=== PATIENT | female | born 1950 | race Caucasian/White ===

== ENCOUNTER 2017-04-09 05:52 | Observation (INO) | payer MEDICARE, MEDICAID ==
--- NOTE | 2017-04-09 06:35 | ERNOTE ---
Medical Problem HPI - Narrative Date of Service: 04/09/17 - General Chief Complaint: General Assessment Time Seen by Provider: 04/09/17 06:31 Source: patient Exam Limitations: clinical condition - PT IS ALERT BUT SPEECH IS LARGELY UNINTELLIGIBLE. - Immun/Allergies/Home Medications Immunizations: IMMUNIZATION HX Immunizations Up to Date Yes Allergies/Adverse Reactions: Allergies ciprofloxacin [From Cipro] Allergy (Verified 08/27/16 12:34) ciprofloxacin HCl [From Cipro] Allergy (Verified 08/27/16 12:34) diphenhydramine Allergy (Verified 08/27/16 12:34) influenza virus vaccine, specific Allergy (Verified 08/27/16 12:34) paroxetine Allergy (Verified 08/27/16 12:34) pneumococcal vaccine Allergy (Verified 08/27/16 12:34) Home Medications: HOME MEDICATIONS Acetaminophen [Tylenol] 500 mg PO Q6H PRN 08/27/16 [Last Taken Unknown] Citalopram Hydrobromide [Citalopram HBr] 20 mg PO DAILY 08/27/16 [Last Taken Unknown] Magnesium Hydroxide [Milk Of Magnesia] 30 ml PO DAILY PRN 08/27/16 [Last Taken Unknown] OLANZapine [Zyprexa] 20 mg PO HS 08/27/16 [Last Taken Unknown] Polyethylene Glycol 3350 [Purelax] 17 gm PO DAILY 08/27/16 [Last Taken Unknown] Ranitidine HCl [Zantac] 300 mg PO HS 08/27/16 [Last Taken Unknown] Sennosides/Docusate Sodium [Senokot-S] 2 tab PO BID 08/27/16 [Last Taken Unknown ] Simvastatin [Zocor] 40 mg PO HS 08/27/16 [Last Taken Unknown] risperiDONE [Risperidone] 0.5 mg PO HS 08/27/16 [Last Taken Unknown] Loratadine [Claritin] 10 mg PO DAILY 04/09/17 [Last Taken Unknown] Lorazepam [Ativan] 2 mg PO TID 04/09/17 [Last Taken Unknown] QUEtiapine FUMARATE [Seroquel] 100 mg PO BID 04/09/17 [Last Taken Unknown] - History of Present History Narrative: [facility] HAVE ONE EPISODE OF HEMOPTYSIS WHILE [facility] THIS AM. THEY SNET IN A SAMPLE THAT THEY DID A HEMOCULT CARD ON BUT SAMPLE LOOKS MORE LIKE COFFEE GROUND EMESIS. PT DOES INDICATE SHE IS A LITTLE NAUSEOUS THOUGH I AM NOT SURE HOW RELIABLE HER HX IS. . SHE HAS HAD NO COUGHING OR VOMITING SINCE SHE ARRIVED. SHE IS NOT ABLE TO GIVE ANY MORE SPECIFIC INFO AND SKILLED NURSING HAS NO OTHER HX TO GIVE. Timing: resolved prior to arrival Review of Systems - Review of Systems Constitutional: Present: See HPI - I AM NOT SUREE THERE IS GOOD RELIABILTY OF HISTORY FROM THE PT. SHE HAS DX OF DEMENTIA IN ADDITION TO THE DIFFICULTY UNDERSTANDING HER. - Patient's Past Medical History Patient History - Medical: Anxiety, Dementia, Depression, Other Patient History - Cardiac/Respiratory: Hyperlipidemia Patient History - Cancer: No Hx of Cancer Patient History - Surgical Procedures: No surgical history - Social History Living Situations: [facility] Psych History: Hx of Depression, Current tx/ever been on anti-depressants or anti-anxiety meds Smoking Status: Former smoker Alcohol Use: none Drug Use: none - Immunizations Immunizations Up to Date: Yes Physical Exam - Physical Exam General Appearance: Present: alert, no apparent distress, other - WEAK DYSARTHIC LADY WHO IS ALERT AND COOP WITH VSS , THOUGH SECOND BP IS ONLY 95. Eye Exam: Normal inspection: bilateral Ears, Nose, Throat: Present: normal ENT inspection, other - NO SIGN OF NOSE BLEED , BLOOD IN MOUTH OR ANY EVIDENCE OF HEMETEMESIS EITHER. Respiratory: Present: no respiratory distress, normal breath sounds, chest nontender, lungs clear Cardiovascular/Chest: Present: regular rate, rhythm, no murmur Gastrointestinal/Abdominal: Present: normal bowel sounds, nontender, nondistended, soft, no organomegaly Rectal Exam: Present: nontender, normal rectal tone, other - SMALL AMOUNT OF BROWNISH STOOL WITH SAMPLE SENT FOR HEME OCCULT. Neurological Exam: Present: other - LADY WITH CHRONIC GENERALIZED WEAKNESS BUT ALERT. NO CERTAIN HOW ORIENT THOUGH HER SPEECH IS ONLY OCC UNDERSTANDABLE. . Skin Exam: Present: normal color ED Progress - Results and Orders Patient's Lab Results:: I have reviewed the patient's lab results. Results and Orders: CBC AND PT/INR ARE NORMAL. CHEMISTRIES AND HEME OCLUT ARE NEGATIVE. THEY FINALLY REPORTED GASTROCULT WITH IS POSITIVE. - Vital Signs Patient's Vital Signs:: I have reviewed the patient's vital signs. Vital Signs: Vital Signs 04/09/17 05:59 Temperature 36.8 C Pulse Rate 71 Respiratory 18 Rate Blood Pressure 136/94 O2 Sat by Pulse 97 Oximetry - X-Ray X-Ray #1 X-Ray: chest Interpretation: Interp. by me - WNL - Progress/Reassessment Chief Complaint: General Assessment Progress:: Unchanged Progress Note-Subjective: 04/09/17 08:14 PT WITH NO EMESIS HERE AND NO SIGN OF ANY OTHER ACUTE PROBLEM. Plan - Plan Plan: WHEN RESULTS OF GASTROCULT FINALLY RETURNED POSITIVE I ORDERED A TYPE AND SCREEN AND CALLED DR López TO HAVE HER ADMITTED TO WHICH HE AGREED. PT HAS BEE STABLE SINCE SHE ARRIVED. MOST RECENT BP = 127/72 WITH HR = 71. I EXPLAINED THE RESULTS TO THE PT AND THE NEED FOR ADMIT AND SHE SEEMS TO UNDERSTAND. Departure - Departure Clinical Impression: UGI bleed Disposition: [facility] Referrals: Chava Serrano MD [Primary Care Provider] -
[2017-04-09 06:49] LABS: Hematocrit 39.9 % (37.0-47.0); Mean Cell Volume 92.8 fl (78-100); Mean Corpuscular Hemoglobin 30.2 pg (27-31); Mean Corpuscular Hgb Conc 32.6 g/dl (32-36); Mean Platelet Volume 11.7 fl (6.0-9.5); Neutrophil # 4.8 K/mm3 (1.3-6.0); Platelet Count 156 K/mm3 (150-450); Red Cell Distribution Width 12.7 % (11.5-14.0); White Blood Count 6.5 K/mm3 (4.0-10.5)
[2017-04-09] MEDS ORDERED: ONDANSETRON HCL/PF 2 MG/ML VIAL IV ONE (06:51)
[2017-04-09] MEDS ORDERED: FAMOTIDINE 10 MG/ML VIAL IV ONE ×2 (06:53→07:11)
[2017-04-09 06:59] LABS: INR 0.97 INR (0.90-1.10); Prothrombin Time (Patient) 10.1 Seconds (9.4-11.4)
[2017-04-09 07:03] LABS: Albumin * 3.4 gm/dl (3.4-5.0); Anion Gap 9.7 mmol/L (6.8-13.8); BUN/Creatinine Ratio 19.1 (9.0-21.6); Bilirubin, Total 0.5 mg/dL (0.0-1.1); CRP 0.2 mg/dL (0.0-0.9); Calcium * 8.8 mg/dL (7.9-10.9); Carbon Dioxide 30.8 mmol/L (24-32.6); Potassium 4.5 mmol/L (3.4-4.6)
--- OUTSIDE RECORDS SUMMARY | 2017-04-09 07:03 | XMS REPORT | Continuity of Care Document ---
:1950 Author Organization [facility] ([facility]) Address [address] [place] [address] Phone [phone] Care Team Providers Name Role Phone Arnulfo Warren Primary Care Provider [phone] Source Comments This disclosure is being made pursuant to the Care Everywhere program, applicable federal and state laws, and may not contain all informaitonavailable regarding this patient.[facility] ([facility]) Active Allergies and Adverse Reactions Allergen Noted Date Severity Reactions Comments Ciprofloxacin Urticaria (Hives) Diphenhydramine (Bulk) Urticaria (Hives) Influenza Virus Vaccines 03/17/2011 Nausea & Vomiting,Diarrhea Paroxetine Urticaria (Hives) Current Medications Prescription Sig. Disp. Refills Start Date End Date Status OLANZapine (ZYPREXA) 20 Take 20 mg by mouth Active mg tablet at bedtime. citalopram (CELEXA) 40 Take 60 mg by mouth Active mg tablet daily. hydrOXYzine pamoate Take 25 mg by mouth 4 04/01/2010 Active (VISTARIL) 25 mg times daily. capsule simvastatin (ZOCOR) 40 Take 40 mg by mouth Active mg tablet every evening. Urea 40 % Lotn by Apply externally Active route at bedtime. clonazePAM (KLONOPIN) Take 0.5 mg by mouth 04/01/2010 Active 0.5 mg tablet 2 times daily as needed. acetaminophen (TYLENOL Take 1,000 mg by Active EXTRA STRENGTH) 500 mg mouth every 6 hours tablet as needed. magnesium hydroxide Take 30 mL by mouth Active (MILK OF MAGNESIA) 80 daily as needed. mg/mL suspension bisacodyl 10 mg insert 10 mg rectally Active suppository daily as needed. citalopram 20 mg tablet Take 20 mg by mouth Active daily. Total dose 60 mg daily halobetasol 0.05 % apply 1 application Active topical cream topically daily. risperiDONE 0.5 mg Take 0.5 mg by mouth Active tablet daily. SENNOSIDES/DOCUSATE Take 1 Tab by mouth Active SODIUM (SENNA PLUS PO) daily. simvastatin 40 mg Take 40 mg by mouth Active tablet every evening. polyethylene glycol Take 17 g by mouth Active 3350 17 gram packet daily as needed. 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 2012 Overview: Related to [place]'s Disease [place]'s disease 04/26/2012 Other screening mammogram 03/28/2006 Screening for unspecified condition 03/28/2006 Social History Tobacco Use Types Packs/Day Years Used Date Never Assessed Smokeless Tobacco: Never Used Last Filed Vital Signs Vital Sign Reading Time Taken Blood Pressure 112/60 09/12/2013 3:04 PM GOAL UMPIRE Pulse 70 09/12/2013 3:02 PM GOAL UMPIRE Temperature 36.3 C (97.34 F) 03/28/2006 3:49 PM CDT Respiratory Rate 16 03/28/2006 3:49 PM CDT Height 1.727 m (5' 8") 03/17/2011 1:14 PM CDT Weight 80.151 kg (176 lb 11.2 oz) 09/12/2013 3:02 PM GOAL UMPIRE Body Mass Index 26.87 09/12/2013 3:02 PM GOAL UMPIRE Oxygen Saturation 98% 09/12/2013 3:02 PM GOAL UMPIRE Plan of Care Health Maintenance Due Date Last Done Comments HCV Screening 1950 Hepatitis B Vaccine (1 of 3 - Primary 1950 Series) Tdap Vaccine 1962 Lipid Disorder Screening 1969 Td Vaccine 1969 Mammogram 1991 Colonoscopy 05/16/2001 Cervical Cancer Screening 03/28/2009 03/28/2006, 05/29/2005 Zoster Vaccine 2011 Osteoporosis Screening (DXA Bone Density) 2016 Pneumococcal Vaccine (1 of 2 - PCV13) 2016 Results from Last 3 Months Not on file
[2017-04-09] MEDS ORDERED: ONDANSETRON HCL/PF 2 MG/ML VIAL ONE (07:11)
[2017-04-09] MEDS: NORMAL SALINE 1,000 ML IV PRN ×2 (07:36→16:09)
[2017-04-09] MEDS ORDERED: NORMAL SALINE 1,000 ML IV PRN (08:08)
[2017-04-09 08:28] LABS: Hematocrit 41.7 % (37.0-47.0); Hemoglobin 13.4 gm/dL (12.5-16.0)
--- OUTSIDE RECORDS SUMMARY | 2017-04-09 08:29 | XMS REPORT | Continuity of Care Document ---
:1950 Author Organization [facility] ([facility]) Address [address] [place] [address] Phone [phone] Care Team Providers Name Role Phone Arnulfo Warren Primary Care Provider [phone] Source Comments This disclosure is being made pursuant to the Care Everywhere program, applicable federal and state laws, and may not contain all informaitonavailable regarding this patient.[facility] ([facility]) Active Allergies and Adverse Reactions [...] with behavioral disturbance 2012 Overview: Related to [place]'s Disease [place]'s disease 04/26/2012 Other screening mammogram 03/28/2006 Screening for unspecified condition 03/28/2006 Social History Tobacco Use Types Packs/Day Years Used Date Never Assessed Smokeless Tobacco: Never Used Last Filed Vital Signs Vital Sign Reading Time Taken Blood Pressure 112/60 09/12/2013 3:04 PM DIGITAL STRATEGIST SENIOR MANAGER Pulse 70 09/12/2013 3:02 PM DIGITAL STRATEGIST SENIOR MANAGER Temperature 36.3 C (97.34 F) 03/28/2006 3:49 PM CDT Respiratory Rate 16 03/28/2006 3:49 PM CDT Height 1.727 m (5' 8") 03/17/2011 1:14 PM CDT Weight 80.151 kg (176 lb 11.2 oz) 09/12/2013 3:02 PM DIGITAL STRATEGIST SENIOR MANAGER Body Mass Index 26.87 09/12/2013 3:02 PM DIGITAL STRATEGIST SENIOR MANAGER Oxygen Saturation 98% 09/12/2013 3:02 PM DIGITAL STRATEGIST SENIOR MANAGER Plan of Care Health Maintenance Due Date [...]
[2017-04-09] MEDS ORDERED: ACETAMINOPHEN 500 MG TABLET PO PRN (09:51)
[2017-04-09] MEDS ORDERED: MAGNESIUM HYDROXIDE 30 ML UDC PO PRN (09:51)
[2017-04-09] MEDS: PANTOPRAZOLE SODIUM 40 MG in NORMAL SALINE 100 ML IV SCH ×2 (11:09→22:28)
[2017-04-09] MEDS: LORazepam 1 MG TABLET PO SCH ×2 (13:01→17:09)
[2017-04-09 14:26] LABS: Hematocrit 36.3 % (37.0-47.0)
--- NOTE | 2017-04-09 17:42 | HP ---
Chief Complaint - Chief Complaint Date of Service: 04/09/17 Time of Service: 17:35 Chief Complaint: Vomiting Blood History of Present Illness: REPORTED BY THE [facility] TO HAVE ONE EPISODE OF HEMOPTYSIS WHILE SHOWERING AT THIS AM. THEY SENT A SAMPLE WITH HER TO THE ER, WHICH THE ER DOCTOR DESCRIBED COFFEE GROND. DEDRESCRIBED COFFEE GROUND. WAS POSITIVE FOR BLOOD WHEN TEST FOR BLOOD. NO MORE VOMITING OF BLOOD SINCE ARRIVING AT [facility]. BLEEDING SCAN NEGATIVE. 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 HER HGB HAS NOT DROPPED HOWEVER SINCE LAST CHECKED BUT WE WILL CONTINUE TO MONITOR FOR SIGNIFICANT ONGOIN BLEEDING. ESTIMATE STAY OF TWO DAYS. - Patient's Past Medical History Patient History - Medical: Anxiety, Dementia, Depression, Other - [place]'s chorea Patient History - Cardiac/Respiratory: Hyperlipidemia Patient History - Cancer: No Hx of Cancer Patient History - Surgical Procedures: No surgical history - Social History Living Situations: intermediate Psych History: Hx of Depression, Current tx/ever been on anti-depressants or anti-anxiety meds Smoking Status: Former smoker Have you smoked in the past 12 months: No Do you dip or chew tobacco: No Alcohol Use: none Drug Use: none - Immunizations Immunizations Up to Date: Yes Review Of Systems (GEN) - Review of Systems Generalized/Overall Review: Present: Malaise EENTM: Present: No Symptoms Reported Respiratory: Present: No Symptoms Reported Cardiac: Present: No Symptoms Reported Abdominal: Present: Hematemesis Genitourinary: Present: No Symptoms Reported Musculoskeletal: Present: No Symptoms Reported Neurological: Present: No Symptoms Reported Skin: Present: No Symptoms Reported Endocrine: Present: No Symptoms Reported Misc: All systems neg except as marked Allergies/Adverse Reactions: Allergies Allergy/AdvReac Type Severity Reaction Status Date / Time ciprofloxacin [From Cipro] Allergy Verified 08/27/16 12:34 ciprofloxacin HCl Allergy Verified 08/27/16 12:34 [From Cipro] diphenhydramine Allergy Verified 08/27/16 12:34 influenza virus vaccine, Allergy Verified 08/27/16 12:34 specific paroxetine Allergy Verified 08/27/16 12:34 pneumococcal vaccine Allergy Verified 08/27/16 12:34 Home Medications: HOME MEDICATIONS Acetaminophen [Tylenol] 1,000 mg PO Q6H PRN 08/27/16 [Last Taken Unknown] Citalopram Hydrobromide [Citalopram HBr] 20 mg PO DAILY 08/27/16 [Last Taken Unknown] Magnesium Hydroxide [Milk Of Magnesia] 30 ml PO DAILY PRN 08/27/16 [Last Taken Unknown] Polyethylene Glycol 3350 [Purelax] 17 gm PO DAILY 08/27/16 [Last Taken Unknown] Ranitidine HCl [Zantac] 300 mg PO HS 08/27/16 [Last Taken Unknown] Sennosides/Docusate Sodium [Senokot-S] 2 tab PO BID 08/27/16 [Last Taken Unknown ] Simvastatin [Zocor] 40 mg PO HS 08/27/16 [Last Taken Unknown] risperiDONE [Risperidone] 0.5 mg PO HS 08/27/16 [Last Taken Unknown] Loratadine [Claritin] 10 mg PO DAILY 04/09/17 [Last Taken Unknown] Lorazepam [Ativan] 2 mg PO Q8H 04/09/17 [Last Taken Unknown] QUEtiapine FUMARATE [Seroquel] 100 mg PO BID 04/09/17 [Last Taken Unknown] Exam - Exam Vital Signs: Vital Signs - Last Taken Temp 36.4 C L 04/09/17 16:30 Pulse 77 04/09/17 16:30 Resp 18 04/09/17 16:30 BP 124/74 04/09/17 16:30 Pulse Ox 100 04/09/17 16:30 Constitutional: Present: Alert, Oriented x3, Cooperative, Well developed, Well nourished, No distress ENT Exam: Present: normal ENT inspection, hearing grossly normal, pharynx normal Eye Exam: bilateral eye: normal inspection, PERRL, EOMI Neck: Present: normal inspection Back Exam: Present: normal inspection Respiratory: Present: normal breath sounds, no respiratory distress Cardiovascular/Chest: Present: regular rate, rhythm, no murmur Abdomen: Present: Normal bowel sounds, soft, nontender, nondistended, no rebound tenderness, no hepatospenomegaly, no masses Extremity: Present: no pedal edema Skin Exam: Present: no cyanosis, cool/dry Appearance: Present: appropriate appearance, appropriate insight, neat, no memory impairment, impaired insight, impaired recent memory Eye contact: Present: cooperative, good eye contact, avoids eye contact Thoughts: Absent: normal mood /affect Diagnostic Studies: Abnormal Lab Results 04/09/17 04/09/17 Range/Units 14:20 Unknown Hgb 12.0 L (12.5-16.0) gm/dL Hct 36.3 L (37.0-47.0) % Gastric Occult Blood Positive H Laboratory Results WBC 6.5 K/mm3 (4.0-10.5) 04/09/17 06:47 RBC 4.30 M/mm3 (4.2-5.4) 04/09/17 06:47 Hgb 12.0 gm/dL (12.5-16.0) L 04/09/17 14:20 Hct 36.3 % (37.0-47.0) L 04/09/17 14:20 MCV 92.8 fl (78-100) 04/09/17 06:47 MCH 30.2 pg (27-31) 04/09/17 06:47 MCHC 32.6 g/dl (32-36) 04/09/17 06:47 RDW 12.7 % (11.5-14.0) 04/09/17 06:47 Plt Count 156 K/mm3 (150-450) 04/09/17 06:47 MPV 11.7 fl (6.0-9.5) H 04/09/17 06:47 Immature Gran % (Auto) 0.20 % (0.001-0.429) 04/09/17 06:47 Immature Gran # (Auto) 0.01 K/mm3 (0.000-0.0310) 04/09/17 06:47 Neutrophils % 73.0 % (42-75.0) 04/09/17 06:47 Lymphocytes % 17.9 % (20-51) L 04/09/17 06:47 Monocytes % 7.5 % (0.0-9) 04/09/17 06:47 Eosinophils % 1.1 % (0.0-3.0) 04/09/17 06:47 Basophils % 0.3 % (0.0-1.0) 04/09/17 06:47 Nucleated RBC % 0.0 k/mm3 (0-1) 04/09/17 06:47 Neutrophils # 4.8 K/mm3 (1.3-6.0) 04/09/17 06:47 Lymphocytes # 1.2 k/mm3 (1.5-3.5) L 04/09/17 06:47 Monocytes # 0.5 k/mm3 (0.0-1.0) 04/09/17 06:47 Eosinophils # 0.1 k/mm3 (0.0-0.7) 04/09/17 06:47 Absolute Basophils 0.0 k/mm3 (0.0-0.1) 04/09/17 06:47 PT 10.1 Seconds (9.4-11.4) 04/09/17 06:47 INR (Anticoag Therapy) 0.97 INR (0.90-1.10) 04/09/17 06:47 pCO2 40.1 mmHg (32.0-45.0) 04/09/17 07:15 pO2 68.9 mmHg (83.0-108.0) L 04/09/17 07:15 HCO3 26.0 mmol/L (21.0-28.0) 04/09/17 07:15 Total CO2 27.2 mmol/L (19.0-24.0) H 04/09/17 07:15 Base Excess 1.6 mmol/L (-2.0-3.0) 04/09/17 07:15 ABG pH 7.43 (7.35-7.45) 04/09/17 07:15 ABG O2 Sat (Measured) 94.3 % (94.0-98.0) 04/09/17 07:15 Sodium 143 mmol/L (132-142) H 04/09/17 06:47 Plasma Sodium 143 mmol/L (130-142) H 04/09/17 06:47 Potassium 4.5 mmol/L (3.4-4.6) 04/09/17 06:47 Chloride 107 mmol/L (97-106) H 04/09/17 06:47 Carbon Dioxide 30.8 mmol/L (24-32.6) 04/09/17 06:47 Anion Gap 9.7 mmol/L (6.8-13.8) 04/09/17 06:47 BUN 17 mg/dL (3-23) 04/09/17 06:47 Creatinine 0.89 mg/dL (0.4-1.4) 04/09/17 06:47 Est GFR (Non-Af Amer) 68 mL/min (60-130) 04/09/17 06:47 BUN/Creatinine Ratio 19.1 (9.0-21.6) 04/09/17 06:47 Random Glucose 101 mg/dL (70-110) 04/09/17 06:47 Calcium 8.8 mg/dL (7.9-10.9) 04/09/17 06:47 Calcium Adj for Albumin 9.0 mg/dL (8.4-10.2) 04/09/17 06:47 Total Bilirubin 0.5 mg/dL (0.0-1.1) 04/09/17 06:47 AST 16 U/L (0-48) 04/09/17 06:47 ALT 22 U/L (19-67) 04/09/17 06:47 Alkaline Phosphatase 118 U/L (50-170) 04/09/17 06:47 C-Reactive Prot, Quant 0.2 mg/dL (0.0-0.9) 04/09/17 06:47 Total Protein 7.0 gm/dL (6.2-8.2) 04/09/17 06:47 Albumin 3.4 gm/dl (3.4-5.0) 04/09/17 06:47 Amylase 99 U/L (25-115) 04/09/17 06:40 Gastric Occult Blood Positive H 04/09/17 Unknown Stool Occult Blood Negative 04/09/17 07:04 Blood Type B Positive 04/09/17 08:15 Antibody Screen Negative 04/09/17 08:15 Assessment/Plan - Narrative Narrative: monitor h&H. meds for PUD. modest intake. estimate 2-3 days in hospital.
[2017-04-09] MEDS: SENNOSIDES/DOCUSATE SODIUM 1 TAB TABLET PO SCH (20:22)
[2017-04-09] MEDS: QUEtiapine FUMARATE 100 MG TABLET PO SCH (20:22)
[2017-04-09 20:25] LABS: Hemoglobin 11.3 gm/dL (12.5-16.0)
[2017-04-09] MEDS ORDERED: OLANZapine 5 MG TABLET PO SCH (21:00)
[2017-04-09] MEDS ORDERED: SIMVASTATIN 40 MG TABLET PO SCH (21:00)
[2017-04-09] MEDS ORDERED: FAMOTIDINE 20 MG TABLET PO SCH (21:00)
[2017-04-10] MEDS: NORMAL SALINE 1,000 ML IV PRN (00:40)
--- NOTE | 2017-04-10 06:17 | PN ---
<Cailin Pozo - Last Filed: 04/10/17 06:29> Subjective - Date and Time Seen Date: 04/10/17 Time: 06:09 Subjective Narrative: Ms. Gage examined this am. She is drowsy and in no distress. Speech is difficult to understand. Nursing reports no acute events overnight involving n/v , bloody stools or hematemesis. Objective - Vitals Vitals: Last Vital Signs Temp 36.8 C 04/10/17 05:23 Pulse 59 L 04/10/17 05:23 Resp 18 04/10/17 05:23 BP 127/58 04/10/17 05:23 Pulse Ox 96 04/10/17 05:23 - Abnormal Lab Findings Abnormal Lab Findings: Abnormal Lab Results 04/09/17 04/09/17 04/09/17 Range/Units 14:20 20:20 Unknown Hgb 12.0 L 11.3 L (12.5-16.0) gm/dL Hct 36.3 L 35.0 L (37.0-47.0) % Gastric Occult Blood Positive H 04/10/17 Range/Units 02:15 Hgb 10.9 L (12.5-16.0) gm/dL Hct (37.0-47.0) % Gastric Occult Blood - Exam Constitutional: Present: No distress, Other - Drowsy, oriented to self only. ENT Exam: Present: dry mucous membranes. Absent: nasal congestion, nasal drainage Neck: Present: non-tender, full range of motion, supple Breasts: Present: Exam deferred Respiratory: Present: no accessory muscle use, rhonchi Cardiovascular/Chest: Present: normal peripheral pulses, regular rate, rhythm, no murmur Abdomen: Present: Normal bowel sounds, soft, nontender /Rectal: Present: Exam deferred Extremity: Present: normal range of motion, no pedal edema Skin Exam: Present: warm/dry, no cyanosis Lymphatic: Present: no adenopathy Neurologic: Present: no motor/sensory deficits, disoriented x 3 Appearance: Present: impaired insight Eye contact: Present: decreased rate of speech Thoughts: Present: no apparent hallucination Assessment/Plan - Problems/Diagnosis (1) UGI bleed Problem: Acute Narrative: Was reported to have coffee ground Vomitus at the [facility] Admitted and started on a PPI. No other episodes thus far since admission to the hospital. H & H down from 12.0-10.9 but its likely hemodilutional vs blood loss. Monitor serial H & Hs, Continue PPI. Anticipate discharge tomorrow. (2) Barren chorea Problem: Chronic (3) Depression Problem: Chronic (4) Anxiety Problem: Chronic <ZachChava - Last Filed: 04/10/17 09:26> Subjective Subjective Narrative: Small drop in Hgb probably dilutional. Will stop IV fluids, and if Hgb stable, will discharge to [facility] after lunch. We will continue to monitor at [facility] and give oral iron and vitamins. Given terminal diagnosis, endoscopy probably not appropriate. Objective - Review of Systems Generalized/Overall Review: Reports: No Symptoms Reported - dementia (somewhat) and non conversant. - Vitals Vitals: Last Vital Signs Temp 36.5 C 04/10/17 06:45 Pulse 61 04/10/17 06:45 Resp 18 04/10/17 06:45 BP 108/61 04/10/17 06:45 Pulse Ox 100 Selected Entries 04/10/17 05:23 Temperature 36.8 C Temperature Oral Source Pulse Rate 59 L Respiratory 18 Rate Blood Pressure 127/58 Blood Pressure Supine Position O2 Sat by Pulse 96 Oximetry Oxygen Delivery Room Air Method - Abnormal Lab Findings Abnormal Lab Findings: Abnormal Lab Results 04/09/17 04/09/17 04/10/17 Range/Units 14:20 20:20 02:15 Hgb 12.0 L 11.3 L 10.9 L (12.5-16.0) gm/dL Hct 36.3 L 35.0 L (37.0-47.0) % 04/10/17 Range/Units 08:26 Hgb 10.7 L (12.5-16.0) gm/dL Hct (37.0-47.0) % Assessment/Plan - Problems/Diagnosis (1) UGI bleed Problem: Acute (2) Barren chorea Problem: Chronic
[2017-04-10] MEDS ORDERED: POLYETHYLENE GLYCOL 3350 119 GM BTL PO SCH (09:00)
[2017-04-10] MEDS ORDERED: LORATADINE 10 MG TABLET PO SCH (09:00)
[2017-04-10] MEDS ORDERED: CITALOPRAM HYDROBROMIDE 20 MG TABLET PO SCH (09:00)
[2017-04-10] MEDS: QUEtiapine FUMARATE 100 MG TABLET PO SCH (09:08)
[2017-04-10] MEDS: SENNOSIDES/DOCUSATE SODIUM 1 TAB TABLET PO SCH (09:08)
[2017-04-10] MEDS: PANTOPRAZOLE SODIUM 40 MG in NORMAL SALINE 100 ML IV SCH (09:08)
[2017-04-10] MEDS: LORazepam 1 MG TABLET PO SCH ×2 (09:10→13:35)
[2017-04-10 10:55] VITALS: BP 103/82
[2017-04-10 12:25] LABS: Anion Gap 9.6 mmol/L (6.8-13.8); BUN/Creatinine Ratio 14.7 (9.0-21.6); Calcium * 8.3 mg/dL (7.9-10.9); Carbon Dioxide 25.5 mmol/L (24-32.6); Estimated Creat Clear 75.4; Potassium 4.1 mmol/L (3.4-4.6)
--- NOTE | 2017-04-10 12:29 | DS ---
(1) UGI bleed Problem: Acute (2) [place] chorea Problem: Chronic Description of Stay: The patient has remained stable while in the hospital. No further vomiting of any kind. No hemoccult positive stools. Slow downdrift of hgb most likely due to IV fluid hemodilution. 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 Will add vitamins and iron, however. Procedures Performed: none Discharge Disposition: [facility] Disposition: [facility] Condition: Poor Discharge Activity: Activity as tolerated Discharge Diet: [facility] soft - needs to be fed Referrals: Chava Serrano MD [Primary Care Provider] - Problem Oriented Discharge Instructions to Patient/Family: Hematemesis Additional Patient Instructions (free text): Feed patient. CBC BMP in 1 month Prescriptions (Any new or edited meds): Ferrous Sulfate 325 mg PO BID #60 tablet.[address] Nagel with Iron-Minerals [[facility]] 1 tab PO DAILY #1 tablet Pantoprazole Sodium [Protonix] 40 mg PO DAILY #1 tablet. Complete Home Medications List: Complete Home Medication List: Acetaminophen [Tylenol] 1,000 mg PO Q6H PRN 08/27/16 Citalopram Hydrobromide [Citalopram HBr] 20 mg PO DAILY 08/27/16 Magnesium Hydroxide [Milk Of Magnesia] 30 ml PO DAILY PRN 08/27/16 Polyethylene Glycol 3350 [Purelax] 17 gm PO DAILY 08/27/16 Ranitidine HCl [Zantac] 300 mg PO HS 08/27/16 Simvastatin [Zocor] 40 mg PO HS 08/27/16 risperiDONE [Risperidone] 0.5 mg PO HS 08/27/16 Loratadine [Claritin] 10 mg PO DAILY 04/09/17 Lorazepam [Ativan] 2 mg PO Q8H 04/09/17 QUEtiapine FUMARATE [Seroquel] 100 mg PO BID 04/09/17 Ferrous Sulfate 325 mg PO BID #60 tablet. 04/10/17 Shona with Iron-Minerals [[facility]] 1 tab PO DAILY #1 tablet 04/10/17 Pantoprazole Sodium [Protonix] 40 mg PO DAILY #1 tablet. 04/10/17 Sennosides/Docusate Sodium [Senokot-S] 2 tab PO BID tablet 04/10/17
== END 2017-04-10 14:45 ==
LOC: ER 05:52 → INTOOBSV 08:24 → MS 08:24
PROVIDERS: ADMIT Allergy & Immunology; ATTEND Allergy & Immunology
DX: K92.2 Gastrointestinal hemorrhage, unspecified (principal); K92.0 Hematemesis; G10 Huntington's disease; F02.80 Dementia in other diseases classified elsewhere, unspecified severity, without behavioral disturbance, psychotic disturbance, mood disturbance, and anxiety; E78.5 Hyperlipidemia, unspecified; Z87.891 Personal history of nicotine dependence; F32.9 Major depressive disorder, single episode, unspecified
CPT/HCPCS: 36415; 36600; 71010; 74020; 78278; 80048; 80053; 82150; 82272; 82803; 85014; 85018; 85025; 85610; 86140; 86850; 86900; 87081; 96365; 96366; 96375; 99284; A9560; G0378; J2405

== ENCOUNTER 2017-08-05 20:21 | Emergency (ER) | payer MEDICARE, MEDICAID ==
--- NOTE | 2017-08-05 20:54 | ERNOTE ---
Medical Problem HPI - General Chief Complaint: General Assessment Time Seen by Provider: 08/05/17 20:32 Source: EMS, RN notes reviewed Exam Limitations: clinical condition - Immun/Allergies/Home Medications Immunizations: IMMUNIZATION HX Immunizations Up to Date Yes History of Influenza Vaccine No Hx Pneumococcal Vaccination No Allergies/Adverse Reactions: Allergies ciprofloxacin [From Cipro] Allergy (Verified 08/05/17 20:34) ciprofloxacin HCl [From Cipro] Allergy (Verified 08/05/17 20:34) diphenhydramine Allergy (Verified 08/05/17 20:34) influenza virus vaccine, specific Allergy (Verified 08/05/17 20:34) paroxetine Allergy (Verified 08/05/17 20:34) pneumococcal vaccine Allergy (Verified 08/05/17 20:34) Home Medications: HOME MEDICATIONS Acetaminophen [Tylenol] 1,000 mg PO Q6H PRN 08/27/16 [Last Taken Unknown] Citalopram Hydrobromide [Citalopram HBr] 20 mg PO DAILY 08/27/16 [Last Taken Unknown] Magnesium Hydroxide [Milk Of Magnesia] 30 ml PO DAILY PRN 08/27/16 [Last Taken Unknown] Polyethylene Glycol 3350 [Purelax] 17 gm PO DAILY 08/27/16 [Last Taken Unknown] Ranitidine HCl [Zantac] 300 mg PO HS 08/27/16 [Last Taken Unknown] Simvastatin [Zocor] 40 mg PO HS 08/27/16 [Last Taken Unknown] risperiDONE [Risperidone] 0.5 mg PO HS 08/27/16 [Last Taken Unknown] Loratadine [Claritin] 10 mg PO DAILY 04/09/17 [Last Taken Unknown] Lorazepam [Ativan] 1 mg PO BID 04/09/17 [Last Taken Unknown] QUEtiapine FUMARATE [Seroquel] 100 mg PO BID 04/09/17 [Last Taken Unknown] Ferrous Sulfate 325 mg PO BID #60 tablet. 04/10/17 [Last Taken Unknown] Multivit-Min/FA/Lycopen/Lutein [[facility]] 1 tab PO DAILY #1 tablet 04/10/17 [Last Taken Unknown] Pantoprazole Sodium [Protonix] 40 mg PO DAILY #1 tablet. 04/10/17 [Last Taken Unknown] Sennosides/Docusate Sodium [Senokot-S] 2 tab PO BID tablet 04/10/17 [Last Taken Unknown] - History of Present History Narrative: Patient reported to have collapsed while in the bathroom with an aide. She lives in the [facility] Unit at the [facility]. Initially they noted a droop on one side of her face, that has resolved. Patient is not able to speak in an understandable fashion. Timing: resolved prior to arrival Modifying Factors - (Improves): Present: other - spontaneous Modifying Factors - (Worsens): Present: other - nothing Review of Systems - Narrative Narrative: unable to obtain - patient has dementia and no understandable speech with me. Nursing staff report that she is able to let people know yes or no. Patient's labs are normal, CT head shows atrophy and chronic changes. X-ray of the chest does not show any gabriella infiltrate, she has no elevated WBC, will not treat at this time without further evidence of infection. - Review of Systems Constitutional: Present: no symptoms reported EYE: Present: no symptoms reported ENT: Present: no symptoms reported Respiratory: Present: no symptoms reported Cardiology: Present: no symptoms reported Gastrointestinal/Abdominal: Present: no symptoms reported Genitourinary: Present: no symptoms reported Musculoskeletal: Present: no symptoms reported Skin: Present: no symptoms reported Neurological: Present: weakness Endocrine: Present: no symptoms reported Hematologic/Lymphatic: Present: no symptoms reported - Patient's Past Medical History Patient History - Medical: Anxiety, Dementia, Depression, Other Patient History - Cardiac/Respiratory: Hyperlipidemia Patient History - Cancer: No Hx of Cancer Patient History - Surgical Procedures: No surgical history Patient History - Other: None LMP (females 10-50): Menopausal - Family History Mother Family History - Medical: No pertinent hx Family History - Cardiac/Respiratory: No pertinent hx Family History - Cancer: No pertinent family hx - Social History Living Situations: assisted living Psych History: Hx of Depression, Current tx/ever been on anti-depressants or anti-anxiety meds Alcohol Use: none Drug Use: none - Immunizations Immunizations Up to Date: Yes Hx Pneumococcal Vaccination: No History of Influenza Vaccine: No Physical Exam - Physical Exam General Appearance: Present: alert, no apparent distress Head Exam: Present: normal inspection, no evidence of injury Eye Exam: Normal inspection: bilateral, PERRL: bilateral, EOMI: bilateral Ears, Nose, Throat: Present: normal ENT inspection Neck: Present: normal inspection, nontender Respiratory: Present: no respiratory distress, normal breath sounds, no accessory muscle use Cardiovascular/Chest: Present: regular rate, rhythm, no murmur Gastrointestinal/Abdominal: Present: normal bowel sounds, nontender, nondistended, soft Extremity Exam: Present: normal inspection, non-tender, normal range of motion Neurological Exam: Present: alert, normal mood/affect, no motor/sensory deficits , 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 Absent: facial droop, disoriented to person Skin Exam: Present: normal color, warm/dry ED Progress - Results and Orders Patient's Lab Results:: I have reviewed the patient's lab results. - Vital Signs Patient's Vital Signs:: I have reviewed the patient's vital signs. Vital Signs: Vital Signs 08/05/17 08/05/17 20:25 20:44 Temperature 36.8 C Pulse Rate 68 67 Respiratory 15 14 Rate Blood Pressure 119/58 102/79 O2 Sat by Pulse 97 Oximetry - X-Ray X-Ray #1 X-Ray: chest Interpretation: Interp. by me X-ray Comments: No gabriella infiltrates, no cardiomegaly, no hyperinflation - CT/Ultrasound CT/Ultrasound Narrative: CT Head - Atrophy, Chronic microvascular changes of the white matter - Progress/Reassessment Chief Complaint: General Assessment Plan - Plan Plan: Return patient to the longterm [facility]. Departure Clinical Impression: Weakness generalized, Collapse fleeting - Departure Disposition: [facility] Condition: Good Referrals: Chava Serrano MD [Primary Care Provider] - (2-3 days)
[2017-08-05 21:27] LABS: Hematocrit 39.5 % (37.0-47.0); Hemoglobin 12.9 gm/dL (12.5-16.0); Mean Cell Volume 91.6 fl (78-100); Mean Corpuscular Hemoglobin 29.9 pg (27-31); Mean Corpuscular Hgb Conc 32.7 g/dl (32-36); Mean Platelet Volume 11.8 fl (6.0-9.5); Neutrophil % 67.9 % (42-75.0); Platelet Count 186 K/mm3 (150-450); Red Blood Count 4.31 M/mm3 (4.2-5.4); Red Cell Distribution Width 12.5 % (11.5-14.0); White Blood Count 5.9 K/mm3 (4.0-10.5)
[2017-08-05 21:36] LABS: Urine Appearance Clear; Urine Bilirubin Negative (NEGATIVE); Urine Blood Negative /ul (NEGATIVE); Urine Color Yellow; Urine Ketone Negative (NEGATIVE); Urine Nitrite Negative (NEGATIVE); Urine Protein Negative (NEGATIVE); Urine Urobilinogen Normal (NORMAL)
[2017-08-05 21:39] LABS: Urine Bacteria None Seen; Urine RBC None Seen /hpf (0-5); Urine WBC 0-5 /hpf (0-5)
[2017-08-05 21:41] LABS: Albumin * 3.4 gm/dl (3.4-5.0); BUN/Creatinine Ratio 16.7 (9.0-21.6); Bilirubin, Total 0.4 mg/dL (0.0-1.1); Ca. Corrected For Albumin 8.9 mg/dL (8.4-10.2); Calcium * 8.7 mg/dL (7.9-10.9); Carbon Dioxide 28.1 mmol/L (24-32.6); Potassium 4.1 mmol/L (3.4-4.6); Total Protein 6.9 gm/dL (6.2-8.2)
[2017-08-06 00:19] VITALS: BP 102/62
== END 2017-08-06 00:30 ==
LOC: ER 20:21
DX: R53.1 Weakness (principal); R55 Syncope and collapse; E78.5 Hyperlipidemia, unspecified; F03.90 Unspecified dementia, unspecified severity, without behavioral disturbance, psychotic disturbance, mood disturbance, and anxiety; F41.8 Other specified anxiety disorders; W18.30XA Fall on same level, unspecified, initial encounter; Z91.81 History of falling; Y93.9 Activity, unspecified; Y92.121 Bathroom in nursing home as the place of occurrence of the external cause

== ENCOUNTER 2017-12-19 22:30 | Observation (INO) | payer MEDICARE, MEDICAID ==
--- NOTE | 2017-12-19 22:39 | ERNOTE ---
Dyspnea - General Presenting Symptoms: shortness of breath Time Seen by Provider: 12/19/17 22:34 Source: EMS Exam Limitations: dementia - Immun/Allergies/Home Medications Immunizations: IMMUNIZATION HX Immunizations Up to Date Yes History of Influenza Vaccine No Hx Pneumococcal Vaccination No Allergies/Adverse Reactions: Allergies ciprofloxacin [From Cipro] Allergy (Verified 12/19/17 22:46) ciprofloxacin HCl [From Cipro] Allergy (Verified 12/19/17 22:46) diphenhydramine Allergy (Verified 12/19/17 22:46) influenza virus vaccine, specific Allergy (Verified 12/19/17 22:46) paroxetine Allergy (Verified 12/19/17 22:46) pneumococcal vaccine Allergy (Verified 12/19/17 22:46) Home Medications: HOME MEDICATIONS Acetaminophen [Tylenol] 1,000 mg PO Q6H PRN 08/27/16 [Last Taken Unknown] Citalopram Hydrobromide [Citalopram HBr] 20 mg PO DAILY 08/27/16 [Last Taken Unknown] Magnesium Hydroxide [Milk Of Magnesia] 30 ml PO DAILY PRN 08/27/16 [Last Taken Unknown] Polyethylene Glycol 3350 [Purelax] 17 gm PO DAILY 08/27/16 [Last Taken Unknown] Ranitidine HCl [Zantac] 300 mg PO HS 08/27/16 [Last Taken Unknown] Simvastatin [Zocor] 20 mg PO HS 08/27/16 [Last Taken Unknown] risperiDONE [Risperidone] 0.5 mg PO HS 08/27/16 [Last Taken Unknown] Loratadine [Claritin] 10 mg PO DAILY 04/09/17 [Last Taken Unknown] Lorazepam [Ativan] 1 mg PO BID 04/09/17 [Last Taken Unknown] QUEtiapine FUMARATE [Seroquel] 100 mg PO BID 04/09/17 [Last Taken Unknown] Ferrous Sulfate 325 mg PO BID #60 tablet. 04/10/17 [Last Taken Unknown] Multivit-Min/FA/Lycopen/Lutein [[facility]] 1 tab PO DAILY #1 tablet 04/10/17 [Last Taken Unknown] Pantoprazole Sodium [Protonix] 40 mg PO DAILY #1 tablet. 04/10/17 [Last Taken Unknown] Sennosides/Docusate Sodium [Senokot-S] 2 tab PO BID tablet 04/10/17 [Last Taken Unknown] Lorazepam 0.5 ml PO DAILY 12/19/17 [Last Taken Unknown] - History of Present Illness Narrative: Pt is on the dementia unit and has been less responsive today. Has had fever today but no temperatures were relayed by EMS. 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 Initiating event: Reports: upper resp illness Modifying Factors - (Improves): Reports: oxygen Review of Systems - Narrative Narrative: ROS unavailable due to pts dementia - Patient's Past Medical History Patient History - Medical: Anxiety, Dementia, Depression, Other Patient History - Cardiac/Respiratory: Hyperlipidemia Patient History - Cancer: No Hx of Cancer Patient History - Surgical Procedures: No surgical history Patient History - Other: None - Family History Mother Family History - Medical: No pertinent hx Family History - Cardiac/Respiratory: No pertinent hx Family History - Cancer: No pertinent family hx - Social History Psych History: Hx of Depression, Current tx/ever been on anti-depressants or anti-anxiety meds - Immunizations Immunizations Up to Date: Yes Hx Pneumococcal Vaccination: No History of Influenza Vaccine: No Physical Exam - Physical Exam General Appearance: Present: wd/wn, mild distress, lethargic Head Exam: Present: normal inspection, no evidence of injury Ears, Nose, Throat: Present: normal ENT inspection Neck: Present: nontender Respiratory: Present: no respiratory distress, no accessory muscle use, lungs clear, decreased breath sounds - on the right Cardiovascular/Chest: Present: regular rate, rhythm, no murmur Extremity Exam: Present: normal inspection, no edema Neurological Exam: Present: other - lethargic, mumbles, contratures of UE's Skin Exam: Present: normal color, warm/dry Lymphatic Exam: Present: no adenopathy ED Progress - Results and Orders Patient's Lab Results:: I have reviewed the patient's lab results. Results and Orders: Laboratory Tests 12/19/17 12/19/17 22:51 22:51 WBC 11.0 H Hgb 11.7 L Hct 35.1 L Neutrophils % 85.7 H Sodium 141 Potassium 3.8 Chloride 107 H Carbon Dioxide 25.2 BUN 16 Creatinine 0.99 Random Glucose 134 H Calcium 8.3 Total Bilirubin 0.7 AST 11 ALT 19 Alkaline Phosphatase 90 B-Natriuretic Peptide 154 Total Protein 6.7 Albumin 2.7 L - Vital Signs Patient's Vital Signs:: I have reviewed the patient's vital signs. - X-Ray X-Ray #1 X-Ray: chest Interpretation: Interp. by me X-ray Comments: RLL pneumonia - Progress/Reassessment Progress:: Unchanged Departure Clinical Impression: Pneumonia Qualifiers: Pneumonia type: due to unspecified organism Laterality: right Lung location: lower lobe of lung Qualified Code(s): J18.1 - Lobar pneumonia, unspecified organism - Departure Disposition: [facility] Condition: Stable
[2017-12-19 22:52] LABS: Hematocrit 35.1 % (37.0-47.0); Hemoglobin 11.7 gm/dL (12.5-16.0); Mean Cell Volume 91.2 fl (78-100); Mean Corpuscular Hemoglobin 30.4 pg (27-31); Mean Corpuscular Hgb Conc 33.3 g/dl (32-36); Mean Platelet Volume 11.8 fl (6.0-9.5); Neutrophil # 9.4 K/mm3 (1.3-6.0); Neutrophil % 85.7 % (42-75.0); Platelet Count 207 K/mm3 (150-450); Red Blood Count 3.85 M/mm3 (4.2-5.4); Red Cell Distribution Width 12.5 % (11.5-14.0)
[2017-12-19 23:16] LABS: Albumin * 2.7 gm/dl (3.4-5.0); Anion Gap 12.6 mmol/L (6.8-13.8); BUN/Creatinine Ratio 16.2 (9.0-21.6); Bilirubin, Total 0.7 mg/dL (0.0-1.1); Calcium * 8.3 mg/dL (7.9-10.9); Carbon Dioxide 25.2 mmol/L (24-32.6); Potassium 3.8 mmol/L (3.4-4.6); Total Protein 6.7 gm/dL (6.2-8.2)
[2017-12-20] MEDS ORDERED: CEFEPIME HCL 1 GM in DEXTROSE 5 % IN WATER 100 ML IV ONE ×2 (00:10)
[2017-12-20] MEDS ORDERED: ACETAMINOPHEN 325 MG TABLET PO PRN (01:37)
[2017-12-20] MEDS ORDERED: ENOXAPARIN SODIUM 40 MG/0.4 ML SYRG SC SCH (01:45)
--- NOTE | 2017-12-20 01:46 | HP ---
Chief Complaint - Chief Complaint Date of Service: 12/20/17 Time of Service: 01:45 Chief Complaint: fever, lethargy, cough History of Present Illness: Korina is a 67 year old female patient of Dr. Saleh who resides at [facility] with a PMH significant for anxiety, dementia, depression, HLD and Leeton's Chorea. According to senior care records, patient became lethargic over the course of the day, spiked a temperature and became hypoxic. In EMS, patient was saturating 89% on 2Lnc, so she was increased to 4L nc prior to the ER. Patient does not wear oxygen at home. ER evaluation revealed temp 37.1, hr 90, rr 20, bp 97/50, sats 94% on 4L nc. wbc elevated at 11.0 with 85.7 neutrophils. chest xray c/w RLL pneumonia. Patient to be admitted with RLL pneumonia and acute respiratory failure. - Patient's Past Medical History Patient History - Medical: Anxiety, Dementia, Depression, Other - daysi's chorea Patient History - Cardiac/Respiratory: Hyperlipidemia Patient History - Cancer: No Hx of Cancer Patient History - Surgical Procedures: No surgical history Patient History - Other: None LMP (females 10-50): Menopausal - Family History Mother Family History - Medical: No pertinent hx Family History - Cardiac/Respiratory: No pertinent hx Family History - Cancer: No pertinent family hx - Social History Living Situations: senior care Psych History: Hx of Depression, Current tx/ever been on anti-depressants or anti-anxiety meds Alcohol Use: none Drug Use: none - Immunizations Immunizations Up to Date: Yes Hx Pneumococcal Vaccination: No History of Influenza Vaccine: No Review Of Systems (GEN) - Review of Systems Generalized/Overall Review: Present: Weakness, Fever - unable to obtain full ROS due to patient's clinical condition. Immunizations: IMMUNIZATION HX Immunizations Up to Date Yes History of Influenza Vaccine No Hx Pneumococcal Vaccination No Allergies/Adverse Reactions: Allergies Allergy/AdvReac Type Severity Reaction Status Date / Time ciprofloxacin [From Cipro] Allergy Verified 12/19/17 22:46 ciprofloxacin HCl Allergy Verified 12/19/17 22:46 [From Cipro] diphenhydramine Allergy Verified 12/19/17 22:46 influenza virus vaccine, Allergy Verified 12/19/17 22:46 specific paroxetine Allergy Verified 12/19/17 22:46 pneumococcal vaccine Allergy Verified 12/19/17 22:46 Home Medications: HOME MEDICATIONS Acetaminophen [Tylenol] 1,000 mg PO Q6H PRN 08/27/16 [Last Taken Unknown] Citalopram Hydrobromide [Citalopram HBr] 20 mg PO DAILY 08/27/16 [Last Taken Unknown] Magnesium Hydroxide [Milk Of Magnesia] 30 ml PO DAILY PRN 08/27/16 [Last Taken Unknown] Polyethylene Glycol 3350 [Purelax] 17 gm PO DAILY 08/27/16 [Last Taken Unknown] Ranitidine HCl [Zantac] 300 mg PO HS 08/27/16 [Last Taken Unknown] Simvastatin [Zocor] 20 mg PO HS 08/27/16 [Last Taken Unknown] risperiDONE [Risperidone] 0.5 mg PO HS 08/27/16 [Last Taken Unknown] Loratadine [Claritin] 10 mg PO DAILY 04/09/17 [Last Taken Unknown] Lorazepam [Ativan] 1 mg PO BID 04/09/17 [Last Taken Unknown] QUEtiapine FUMARATE [Seroquel] 100 mg PO BID 04/09/17 [Last Taken Unknown] Ferrous Sulfate 325 mg PO BID #60 tablet. 04/10/17 [Last Taken Unknown] Multivit-Min/FA/Lycopen/Lutein [[facility]] 1 tab PO DAILY #1 tablet 04/10/17 [Last Taken Unknown] Pantoprazole Sodium [Protonix] 40 mg PO DAILY #1 tablet. 04/10/17 [Last Taken Unknown] Sennosides/Docusate Sodium [Senokot-S] 2 tab PO BID tablet 04/10/17 [Last Taken Unknown] Lorazepam 0.5 ml PO DAILY 12/19/17 [Last Taken Unknown] Exam - Exam Vital Signs: Vital Signs - Last Taken Temp 36.5 C 12/20/17 00:44 Pulse 77 12/20/17 01:08 Resp 17 12/20/17 01:08 BP 104/53 12/20/17 01:08 Pulse Ox 98 12/20/17 01:08 Constitutional: Present: Lethargic, Thin and frail, Looks Older than stated age ENT Exam: Present: hearing grossly normal Eye Exam: bilateral eye: normal inspection Neck: Present: lymphadenopathy (R), lymphadenopathy (L) Breasts: Present: Exam deferred Respiratory: Present: no respiratory distress, no accessory muscle use, decreased breath sounds, rales - RLL Cardiovascular/Chest: Present: regular rate, rhythm, no chest tenderness Peripheral Pulses: carotid (R): 2+, carotid (L): 2+, radial (R): 2+, radial (L) : 2+ Abdomen: Present: soft, nontender, nondistended /Rectal: Present: Exam deferred Extremity: Present: non-tender, other - upper extremities contracted (chronic) Skin Exam: Present: warm/dry, no cyanosis, pallor Diagnostic Studies: Laboratory Results WBC 11.0 K/mm3 (4.0-10.5) H 12/19/17 22:51 RBC 3.85 M/mm3 (4.2-5.4) L 12/19/17 22:51 Hgb 11.7 gm/dL (12.5-16.0) L 12/19/17 22:51 Hct 35.1 % (37.0-47.0) L 12/19/17 22:51 MCV 91.2 fl (78-100) 12/19/17 22:51 MCH 30.4 pg (27-31) 12/19/17 22:51 MCHC 33.3 g/dl (32-36) 12/19/17 22:51 RDW 12.5 % (11.5-14.0) 12/19/17 22:51 Plt Count 207 K/mm3 (150-450) 12/19/17 22:51 MPV 11.8 fl (6.0-9.5) H 12/19/17 22:51 Immature Gran % (Auto) 0.50 % (0.001-0.429) H 12/19/17 22:51 Immature Gran # (Auto) 0.05 K/mm3 (0.000-0.0310) H 12/19/17 22:51 Neutrophils % 85.7 % (42-75.0) H 12/19/17 22:51 Lymphocytes % 7.8 % (20-51) L 12/19/17 22:51 Monocytes % 5.9 % (0.0-9) 12/19/17 22:51 Eosinophils % 0.0 % (0.0-3.0) 12/19/17 22:51 Basophils % 0.1 % (0.0-1.0) 12/19/17 22:51 Nucleated RBC % 0.0 k/mm3 (0-1) 12/19/17 22:51 Neutrophils # 9.4 K/mm3 (1.3-6.0) H 12/19/17 22:51 Lymphocytes # 0.9 k/mm3 (1.5-3.5) L 12/19/17 22:51 Monocytes # 0.7 k/mm3 (0.0-1.0) 12/19/17 22:51 Eosinophils # 0.0 k/mm3 (0.0-0.7) 12/19/17 22:51 Absolute Basophils 0.0 k/mm3 (0.0-0.1) 12/19/17 22:51 Sodium 141 mmol/L (132-142) 12/19/17 22:51 Plasma Sodium 142 mmol/L (130-142) 12/19/17 22:51 Potassium 3.8 mmol/L (3.4-4.6) 12/19/17 22:51 Chloride 107 mmol/L (97-106) H 12/19/17 22:51 Carbon Dioxide 25.2 mmol/L (24-32.6) 12/19/17 22:51 Anion Gap 12.6 mmol/L (6.8-13.8) 12/19/17 22:51 BUN 16 mg/dL (3-23) 12/19/17 22:51 Creatinine 0.99 mg/dL (0.4-1.4) 12/19/17 22:51 Est GFR (Non-Af Amer) 60 mL/min (60-130) 12/19/17 22:51 BUN/Creatinine Ratio 16.2 (9.0-21.6) 12/19/17 22:51 Random Glucose 134 mg/dL (70-110) H 12/19/17 22:51 Calcium 8.3 mg/dL (7.9-10.9) 12/19/17 22:51 Calcium Adj for Albumin 9.0 mg/dL (8.4-10.2) 12/19/17 22:51 Total Bilirubin 0.7 mg/dL (0.0-1.1) 12/19/17 22:51 AST 11 U/L (0-48) 12/19/17 22:51 ALT 19 U/L (19-67) 12/19/17 22:51 Alkaline Phosphatase 90 U/L (50-170) 12/19/17 22:51 B-Natriuretic Peptide 154 pg/mL (5-325) 12/19/17 22:51 Total Protein 6.7 gm/dL (6.2-8.2) 12/19/17 22:51 Albumin 2.7 gm/dl (3.4-5.0) L 12/19/17 22:51 Assessment/Plan - Narrative Narrative: Korina is a 67 year old female patient who was admitted for RLL pneumonia and acute respiratory failure. Acute Respiratory failure - patient is currently needing 4 liters to maintain adequate oxygenation - can be secondary to pneumonia but will check influenza as a precaution. - watch oxygen saturations closely Pneumonia, RLL - patient is currently on cefepime, which is indicated due to her high risk status as a senior care resident and her significant hypoxia. - if patient does not improve on cefepime, consider changing to zosyn given possible aspiration risk from co-morbidities. - recheck labs in am. weakness - per senior care report, pt was vomiting today - likely dehydrated - rehydrate with iv fluids. Chronic conditions: anxiety/depression, daysi's chlorea. GI Proph: protonix VTE: lovenox Code status: DNR - Assessment/Plan (1) Acute respiratory failure Problem: Acute Qualifiers: Respiratory failure complication: hypoxia Qualified Code(s): J96.01 - Acute respiratory failure with hypoxia (2) Pneumonia Problem: Acute Qualifiers: Pneumonia type: due to unspecified organism Laterality: right Lung location: lower lobe of lung Qualified Code(s): J18.1 - Lobar pneumonia, unspecified organism (3) Weakness generalized Problem: Acute (4) Anxiety Problem: Chronic (5) Depression Problem: Chronic (6) Leeton chorea Problem: Chronic
[2017-12-20] MEDS: NORMAL SALINE 1,000 ML IV PRN ×2 (01:56→10:46)
[2017-12-20] MEDS ORDERED: MAGNESIUM HYDROXIDE 30 ML UDC PO PRN (02:48)
[2017-12-20] MEDS ORDERED: PANTOPRAZOLE SODIUM 40 MG TABLET.EC PO SCH ×2 (07:00→09:00)
[2017-12-20] MEDS ORDERED: CEFEPIME HCL 1 GM in DEXTROSE 5 % IN WATER 100 ML IV SCH ×2 (08:00)
[2017-12-20] MEDS ORDERED: POLYETHYLENE GLYCOL 3350 119 GM BTL PO SCH (09:00)
[2017-12-20] MEDS ORDERED: SENNOSIDES/DOCUSATE SODIUM 1 TAB TABLET PO SCH (09:00)
[2017-12-20] MEDS ORDERED: LORATADINE 10 MG TABLET PO SCH (09:00)
[2017-12-20] MEDS ORDERED: QUEtiapine FUMARATE 100 MG TABLET PO SCH (09:00)
[2017-12-20] MEDS ORDERED: LORazepam 1 MG TABLET PO SCH (09:00)
[2017-12-20] MEDS ORDERED: FERROUS SULFATE 325 MG TABLET PO SCH (09:00)
[2017-12-20] MEDS ORDERED: CITALOPRAM HYDROBROMIDE 20 MG TABLET PO SCH (09:00)
[2017-12-20] MEDS ORDERED: LORazepam 0.5 MG TABLET PO SCH ×3 (09:00→12:00)
[2017-12-20 10:35] VITALS: BP 93/56
--- NOTE | 2017-12-20 14:08 | DS ---
(1) Hypoxia Problem: Resolved (2) Weakness generalized Diagnosis(s): Acute on Chronic Problem: Acute Description of Stay: ADMISSION DATE: 12/20/2017 DISCHARGE DATE: 12/20/2017 ADMISSION HPI by Marielena Sewell: Korina is a 67 year old female patient of Dr. Saleh who resides at [facility] with a PMH significant for anxiety, dementia, depression, HLD and Florence's Chorea. According to intermediate records, patient became lethargic over the course of the day, spiked a temperature and became hypoxic. In EMS, patient was saturating 89% on 2Lnc, so she was increased to 4L nc prior to the ER. Patient does not wear oxygen at home. ER evaluation revealed temp 37.1, hr 90, rr 20, bp 97/50, sats 94% on 4L nc. wbc elevated at 11.0 with 85.7 neutrophils. chest xray c/w RLL pneumonia. Patient to be admitted with RLL pneumonia and acute respiratory failure. HOSPITAL COURSE: The patient was brought to the emergency department from the intermediate where she resides for fevers, increased lethargy and hypoxia. The patient was admitted for observation. The chest x-ray taken on admission was unremarkable without signs or concerns for pneumonia. The patient remained afebrile the entire time she was in the hospital and her hypoxia also resolved. The patient s admission was uneventful and she was discharged back to [facility] in stable condition. She was instructed to follow-up with her primary care provider within one week. FOLLOW-UP APPOINTMENTS: -PCP within 1 week NEW OR CHANGED MEDICATIONS: None DISCONTINUED MEDICATIONS: None RADIOLOGY REPORTS: Single view chest x-ray on 12/19/2017: No acute cardiopulmonary processes detected. Procedures Performed: none Discharge Disposition: [facility] Discharge Location: [facility] Disposition: Intermediate Care Facility [facility] Condition: Stable Discharge Activity: Activity as tolerated Discharge Diet: Resume usual diet Referrals: Marielena Sewell ARNP [Primary Care Provider] - Additional Patient Instructions (free text): Follow-up with PCP within 1-2 weeks Complete Home Medications List: Complete Home Medication List: Acetaminophen [Tylenol] 1,000 mg PO Q6H PRN 08/27/16 Citalopram Hydrobromide [Citalopram HBr] 20 mg PO DAILY 08/27/16 Magnesium Hydroxide [Milk Of Magnesia] 30 ml PO DAILY PRN 08/27/16 Polyethylene Glycol 3350 [Purelax] 17 gm PO DAILY 08/27/16 Ranitidine HCl [Zantac] 300 mg PO HS 08/27/16 Simvastatin [Zocor] 20 mg PO HS 08/27/16 risperiDONE [Risperidone] 0.5 mg PO HS 08/27/16 Loratadine [Claritin] 10 mg PO DAILY 04/09/17 Lorazepam [Ativan] 1 mg PO BID 04/09/17 QUEtiapine FUMARATE [Seroquel] 100 mg PO BID 04/09/17 Ferrous Sulfate 325 mg PO BID #60 tablet. 04/10/17 Multivit-Min/FA/Lycopen/Lutein [[facility]] 1 tab PO DAILY #1 tablet 04/10/17 Pantoprazole Sodium [Protonix] 40 mg PO DAILY #1 tablet. 04/10/17 Sennosides/Docusate Sodium [Senokot-S] 2 tab PO BID tablet 04/10/17 Lorazepam 0.5 ml PO DAILY@1200 12/19/17
[2017-12-20] MEDS ORDERED: risperiDONE 0.25 MG TABLET PO SCH (21:00)
[2017-12-21] MEDS ORDERED: POLYETHYLENE GLYCOL 3350 119 GM BTL PO SCH (09:00)
== END 2017-12-20 15:05 ==
LOC: ER 22:30 → INTOOBSV 12-20 00:10 → MS 12-20 00:10
PROVIDERS: ADMIT Nurse Practitioner Critical Care Medicine; ATTEND Internal Medicine
DX: R09.02 Hypoxemia (principal); R53.1 Weakness; J96.01 Acute respiratory failure with hypoxia; J18.1 Lobar pneumonia, unspecified organism; F41.8 Other specified anxiety disorders; G10 Huntington's disease; Z68.27 Body mass index [BMI] 27.0-27.9, adult